=== PATIENT | male | born 1990 | race Caucasian/White ===

== ENCOUNTER 2022-10-26 08:35 | Emergency (ER) | payer OTHER ==
[~2022-10-26] VITALS: Ht 177.8 cm; Wt 90.7 kg
--- NOTE | 2022-10-26 08:49 | NUR ---
seen and examined by MD Regan
[2022-10-26] MEDS ORDERED: ACETAMINOPHEN 325 MG TABLET PO ONE (09:00)
[2022-10-26] MEDS ORDERED: ACETAMINOPHEN 325 MG TABLET ONE (09:07)
--- NOTE | 2022-10-26 10:08 | NUR ---
Patient discharged to home in stable condition. Written and verbal after care instructions given. Patient verbalizes understanding of instructions. Stressed follow up or return to ER for worsening s/s.
[2022-10-26 10:09] VITALS: BP 122/79
== END 2022-10-26 10:05 | disposition home or self-care (01) ==
LOC: ER 08:35
DX: S93.402A Sprain of unspecified ligament of left ankle, initial encounter (principal); F17.210 Nicotine dependence, cigarettes, uncomplicated; X50.1XXA Overexertion from prolonged static or awkward postures, initial encounter; Y93.89 Activity, other specified; Y92.89 Other specified places as the place of occurrence of the external cause; Y99.8 Other external cause status
CPT/HCPCS: 73600; 73620; A4663